=== PATIENT | female | born 1990 | race Caucasian/White ===

== ENCOUNTER 2017-07-13 11:07 | Day surgery (SDC) | payer BC ==
[2017-07-13 11:44] VITALS: BMI 26.1
[2017-07-13 11:51] VITALS: BP 127/75; TEMP 98.7
[2017-07-13 12:47] LABS: Amnisure Test No Membranes Rupture (No Rupture)
[2017-07-13] MEDS ORDERED: Cyclobenzaprine 10 MG TAB PO SCH (13:15)
[2017-07-13] MEDS ORDERED: Ondansetron HCl/PF 4 MG in Sodium Chloride 0.9% 50 ML IVPB PRN (13:53)
[2017-07-13] MEDS ORDERED: Ondansetron HCl/PF 4 MG/2 ML Vial ONE (13:53)
[2017-07-13] MEDS ORDERED: Lactated Ringer's 1,000 ML IV SCH (14:00)
[2017-07-13 14:42] LABS: Bilirubin Negative (Negative); Blood, Urine Negative (Negative); Glucose, Urine (Dipstick) Negative (Negative); Ketone, Urine Negative (Negative); Nitrite Negative (Negative); Protein, Urine (Dipstick) Negative (Neg-Trace); Urobilinogen 0.2 mg/dL (0.2-1.0)
[2017-07-13 14:48] LABS: Bacteria/HPF None Seen HPF (None Seen); Hyaline Casts/LPF 4-6 HYALINE CAST LPF (0-3 Hyaline); RBC/HPF 0-3 HPF (0-3); Squamous Epithelial 0-3 HPF (0-3); WBC/HPF 0-3 HPF (0-3)
--- NOTE | 2017-07-13 15:56 | PDOC.LDHP ---
Labor and Delivery H&P Chief complaint: other (multiple complaints) HPI: 26 y/o at 29w6d, patient of Dr. Dahl, present with multiple complaints. Had wetness in her underwear the last 3 days requiring her to change 2x per day. Also complaints of sharp vaginal pain with movement and low back pain. Pains radiate down to legs. Reports fever at home of 101 this morning but has been afebrile since. Denies headache, URI symptoms, diarrhea, UTI symptoms, or other concerns. She initially denied N/V but had an episode of emesis while in the room with dizziness. ROS neg for HEENT, cv, pulm, gi, gu, neuro, psych, skin, musculoskeletal, or constitutional symptoms other than mentioned above. OB History Details: 1 prior term LTCS. Baby has trisomy 21 and CHD. Past Medical History: History of seizures as child Current medications: pre-charlie vitamins Previous surgical history: low tranverse CS Allergies/Adverse Reactions: Allergies Allergy/AdvReac Type Severity Reaction Status Date / Time Iodine and Iodide Containing Allergy Verified 11/12/14 18:01 Produc shrimp Allergy Severe Anaphylaxis Uncoded 07/13/17 11:42 Social history: none - Physical Exam Vital signs reviewed and normal: yes General: NAD, resting Lungs: nonlabored breathing Abdomen: gravid Extremeties: no edema FHT: category 1 (135, mod variability, + accels, no decels) Morganza contractions every: none - Vaginal Exam cm dilated: 0 Effacement: 0% Station: -3 - OB Labs Additional Labs: Laboratory Tests 07/13/17 07/13/17 12:01 14:00 Urine Color YELLOW Urine Clarity CLEAR Urine pH 6.0 Ur Specific [place] 1.020 Urine Protein Negative Urine Glucose (UA) Negative Urine Ketones Negative Urine Blood Negative Urine Nitrite Negative Urine Bilirubin Negative Urine Urobilinogen 0.2 Ur Leukocyte Esterase Trace H Urine RBC 0-3 Urine WBC 0-3 Ur Squamous Epith Cells 0-3 Urine Bacteria None Seen Hyaline Casts 4-6 HYALINE CAST H Amnio Swab Test No Membranes Rupture - Assessment 26 y/o at 29w6d with no e/o SROM or labor. Likely normal musculoskeletal discomforts of and possible early gastroenteritis. status reassuring with reactive NST. - Plan -: Given 2L IV fluids, Zofran and feeling better. D/c home with precautions. Advised to keep follow up appointments and call Dr. Dahl's office with concerns.
== END 2017-07-13 15:45 | disposition home or self-care (01) ==
LOC: L&D/OP 11:07
PROVIDERS: ATTEND Obstetrics & Gynecology
DX: O99.89 Other specified diseases and conditions complicating pregnancy, childbirth and the puerperium (principal); R10.2 Pelvic and perineal pain; M54.5 Low back pain; Z3A.29 29 weeks gestation of pregnancy; Z79.899 Other long term (current) drug therapy; Z91.041 Radiographic dye allergy status; Z91.013 Allergy to seafood; Z98.890 Other specified postprocedural states; Z87.891 Personal history of nicotine dependence
CPT/HCPCS: 51701; 81001; 84112; 96360; 96361; 96375; 99284; J2405

== ENCOUNTER 2017-12-22 14:58 | Inpatient (IN) | payer BC ==
[2017-12-22] MEDS ORDERED: Morphine 4 MG/ML VIAL ONE ×2 (15:16→18:13)
[2017-12-22] MEDS ORDERED: Ondansetron ODT 4 MG TAB ONE ×2 (15:16→18:13)
[2017-12-22 15:38] LABS: #Lymphocytes 0.9 thou/uL (1.20-3.40); #Monocytes 0.9 thou/uL (0.11-0.59); #Neutrophils 4.5 thou/uL (1.40-6.50); %Basophils 0.5 % (0.0-1.0); %Eosinophils 0.7 % (0.0-10.0); %Lymphocytes 14.1 % (21.0-51.0); %Monocytes 13.3 % (0.0-10.0); %Neutrophils 71.3 % (42.0-75.0); Mean Corpuscular HGB CONC 33.9 g/dL (32.0-36.0); Mean Corpuscular Hemoglobin 31.3 pg (27.0-31.0); Mean Corpuscular Volume 92.3 fl (81.0-99.0); Mean Platelet Volume 7.4 fL (7.4-10.4); Platelet Count 218 thou/uL (130-400); RBC Distribution Width 11.3 % (11.5-14.5); Red Blood Cell (RBC) Count 4.46 mill/uL (4.20-5.40); White Blood Cell (WBC) Count 6.3 thou/uL (4.8-10.8)
[2017-12-22 15:48] LABS: BHCG - Serum Negative (NEGATIVE); Pregs Control Background? CLEAR/WHITE (CLR/WHITE); Pregs Control Bar Appear? YES (CONTROL BAR)
[2017-12-22 16:01] LABS: ALT (SGPT) 30 U/L (8-55); AST (SGOT) 20 U/L (5-34); Albumin 4.5 g/dL (3.5-5.0); Alkaline Phosphatase 78 U/L (40-150); Anion Gap 11 mmol/L (10-20); BUN (Urea Nitrogen) 14 mg/dL (7.0-18.7); Bilirubin, Total 0.4 mg/dL (0.2-1.2); Calc. Creatinine Clearance 0 mL/min (70-130); Calcium 9.7 mg/dL (7.8-10.44); Carbon Dioxide 26 mmol/L (22-29); Chloride 103 mmol/L (98-107); Estimated GFR-MDRD 79; Globulin 2.9 g/dL (2.4-3.5); Glucose 101 mg/dL (70-105); Potassium 4.1 mmol/L (3.5-5.1); Protein, Total 7.4 g/dL (6.0-8.3); Sodium 136 mmol/L (136-145)
[2017-12-22 16:06] LABS: Bilirubin Negative (Negative); Blood, Urine Negative (Negative); Clarity CLEAR (Clear); Glucose, Urine (Dipstick) Negative (Negative); Leukocyte Small (Negative); Nitrite Negative (Negative); Protein, Urine (Dipstick) Negative (Neg-Trace); Specific Gravity, Urine 1.017 (1.002-1.036); Urobilinogen 0.2 mg/dL (0.2-1.0)
[2017-12-22 16:19] LABS: Bacteria/HPF None Seen HPF (None Seen); Hyaline Casts/LPF 0-3 HYALINE CAST LPF (0-3 Hyaline); Pathc Cast-AUWi Flag 0.29 (0-2.49); RBC/HPF 0-3 HPF (0-3); WBC/HPF 0-3 HPF (0-3)
--- NOTE | 2017-12-22 16:31 | CT ---
CT ABDOMEN AND PELVIS WITHOUT IV CONTRAST: TECHNIQUE: Multiple axial tomograms obtained through the abdomen and pelvis without IV enhancement. INDICATION: Fever and abdominal pain. Pelvic pain. FINDINGS: Lung bases clear. Liver, spleen, and pancreas unremarkable for an unenhanced exam. Adrenal glands and kidneys unremark able. No hydronephrosis. The urinary bladder is partially distended. The uterus appears prominent. There is prominence of the right adnexa. There is a complex-appearing mass in the right adnexa measuring up to 3.5 cm. This is poorly defined on this exam. This may be a complex cystic lesion. Etiologies such as ectopic are not excluded. No significant free fluid in the pelvis. IMPRESSION: Limited exam due to lack of IV and oral contrast. Evidence of a complex mass in the right adnexa phoenix suring 3 to 3.5 cm. Recommend correlation with serum HCG to exclude ectopic . Suggest foll owup pelvic ultrasound or pelvic MRI for better characterization. POS: GRECIA
[2017-12-22 16:33] LABS: Transitional Epithelial 0-3 HPF (0-3)
[2017-12-22] MEDS ORDERED: Acetaminophen 500 MG TAB ONE (16:37)
--- NOTE | 2017-12-22 17:34 | ULT ---
PELVIC ULTRASOUND: 12/22/17 COMPARISON: CT abdomen/pelvis 12/22/17. HISTORY: Right sided pelvic mass seen on CT. TECHNIQUE: Multiplanar rodriguez scale and color doppler images were obtained in a transabdominal and transvaginal pe lvic ultrasound. Spectral analysis of the doppler waveforms of the ovaries were performed. FINDINGS: The uterus is normal in size and appearance without focal abnormality. The endometrial strip is hazel l in appearance measuring 4 mm. A small amount of free fluid is seen in the pelvis. Both ovaries are normal in size and appearance. N ormal flow is seen in the right ovary. Flow cannot be definitely seen in the left ovary secondary to patient mobility and shaking. No pelvic mass is identified. The abnormality seen on CT in the right a spect of the pelvis may represent the patient's right ovary. IMPRESSION: No significant pelvic abnormality. POS: IRENE
--- NOTE | 2017-12-22 17:38 | PDOC.EVN ---
Event Note - Event Note Event Note: ED OBGYN Consultation Time of eval: 7384-2533 Location ED 16 CC: fevers and lower right sided pain Patient seen in the ED with Dr Dahl at bedside. PLEASE SEE HANDWRITTEN CONSULT NOTE SCANNED IN CHART In brief, 27 yo patient (3mos) s/p CS 3 mos ago with progressive LAP , rt > left. Patient with Tmax 102.5. CT with unclear right lower quadrant "mass", sono with no distinct ovarian abnormality, no torsion. 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 I have requested Dr Whiting (correction officer supervisor) to asses the patient. I will defer primary care of the patient to Dr Whiting at this time. Plan d/w patient and her , and the ED BURRER MACHINE.
--- NOTE | 2017-12-22 17:46 | PDOC.EVN ---
Event Note - Event Note Event Note: @1742: Progress note follow up: Dr Thomas has evaluated the patinet. States CT reveals normal appendix per radiology. DX includes possible ruptured ovarian cyst vs other. We will admit for emperic Rocephin and Zmax for now and follow. Clears for now. Repeat CBC in AM
--- NOTE | 2017-12-22 17:53 | PDOC.EVN ---
Event Note - Event Note Event Note: HISTORY AND PHYSICAL @1755 OBYN Admission Plesae see other event notes for information. Scanned consult will function as H &P. HPI: In brief, this patient has had worsening pelvic pain for [address] with nonspecific changes to right adnexa. Sono with no disctinct pelvic mass or torsion. Gen Surgery has felt this is not appy related. Sxs include pain and fever. Tmax in ED was 102.5 with WBC of 6. CMP wnl Review of Systems: , last sex about one week ago..pain started around that time Surg Hx: CS 3 mos ago Allergies: Iodine/Wheat Social: negative for ETOH, tobacco, IVDA PHYSICAL: right abdominal/pelvic pain on deep palpation no vag dsch no vag bleed Assessment: please see other enries. Suspected pelvic infection, NOS Plan: Rocepin/Zmax repeat CBC and CMP in AM Follow for now LR hydration Clear diet
[2017-12-22] MEDS ORDERED: metroNIDAZOLE 500 MG in Premix Bag 1 BAG IVPB SCH (18:00)
[2017-12-22] MEDS ORDERED: Azithromycin 500 MG VIAL ONE (18:06)
[2017-12-22] MEDS ORDERED: cefTRIAXone\\ROCEPHIN 1 GM VIAL ONE (18:06)
--- NOTE | 2017-12-22 20:29 | PDOC.EVN ---
Event Note - Event Note Event Note: @2019: Patient now on 3SE patient seen Stable Temp now 98 Continue ABX Mainline LR as IVF
[2017-12-22] MEDS: Butorphanol Tartrate 1 MG/ML VIAL SLOW IVP PRN (20:47)
[2017-12-22] MEDS: Promethazine HCl 25 MG/ML VIAL IM/IV PRN (20:48)
--- NOTE | 2017-12-22 21:19 | PDOC.EVN ---
Event Note - Event Note Event Note: VP3 positive for BV. On Flagyl
--- NOTE | 2017-12-22 21:22 | HP ---
HISTORY OF PRESENT ILLNESS: This is a 27-year-old, 2, para 2, three months C-sect ion, Dr. Dahl. The patient states that 2 weeks ago, she began having lower back pain when she is r ocking her . This persisted over the next 2 weeks. During that time, she has not been able t o have sexual relations with her . She has had continued low back pain. For about a week, fabio butler experienced diarrhea and anorexia, but that resolved. Acute onset admitted morning, this morning, was low back pain and lower abdominal pain. She presented to the emergency room. She has an IODINE allergy, cannot tolerate SEAFOOD and IODINE prep on her scan causes edema. Thus, she underwent a non oral and non-IV contrast CAT scan of abdomen and pelvis revealed an adnexal mass, and ultrasound reve aled an adnexal mass with normal-appearing ovaries with flow. She had a fever this morning to 102 de grees, on arrival 100 degrees in the emergency room and later to 102.0 degrees. She has a normal whi te count. She had an appointment with Dr. Dahl to talk to him about her pain with intercourse and he sent her to the hospital, precipitating this evaluation. Dr. Mendez has seen the patient in evalua tion and felt initially that this was possibly appendicitis. I was asked to see her. Patient's history is not consistent with appendicitis. It is more consistent with adnexal gynecologi maritza problem. Personal review of the CAT scan with radiologist and with this suboptimal CAT scan (IOD INE allergy noncontrast oral and IV scan), the appendix is still visualized and appears to be normal. The imaging abnormality seen on both CAT scan and ultrasound is more consistent with an adnexal pro blem. I have discussed with Dr. Mendez, who will admit her for intravenous antibiotics. I do not think a ge neral surgical intervention is wanted at this time. I will certainly be available if laparoscopy is performed, but I think that the patient does not have appendicitis based on history and imaging. ALLERGIES: IODINE. TOBACCO: None. ALCOHOL: Rarely. MEDICATIONS: None. PAST SURGICAL HISTORY: C-sections. PAST MEDICAL HISTORY: Noncontributory. REVIEW OF SYSTEMS: Ten-point noncontributory. PHYSICAL EXAMINATION: VITAL SIGNS: Heart rate 80, blood pressure 120/74, respiratory rate 16, GENERAL: Patient is in mild discomfort. LUNGS: Clear to auscultation. CARDIAC: Regular rate and rhythm without murmur, rub, or gallop. ABDOMEN: Soft, tenderness with guarding in right lower quadrant. EXTREMITIES: Unremarkable. LABORATORY DATA: White count 6 and hemoglobin normal. Comprehensive metabolic profile normal. CAT scan and ultrasound as described. ASSESSMENT AND PLAN: Abdominal pain, probably of gynecological etiology, certainly not appendicitis. Treatment per Dr. Mendez. I will be available should laparoscopy be indicated for failed nonsurgica l treatment.
[2017-12-22] MEDS: Lactated Ringer's 1,000 ML IV SCH (21:42)
[2017-12-22] MEDS: metroNIDAZOLE 500 MG in Premix Bag 1 BAG IVPB SCH (22:18)
[2017-12-23 00:41] VITALS: BMI 28.1
[2017-12-23] MEDS: cefTRIAXone\\ROCEPHIN 1 GM in Sodium Chloride 0.9% 100 ML IVPB SCH ×2 (00:45→18:28)
[2017-12-23] MEDS: Ibuprofen 600 MG TAB PO PRN ×3 (02:42→14:20)
--- NOTE | 2017-12-23 04:03 | PDOC.EVN ---
Event Note - Event Note Event Note: HD2 (admitted 12/23/17) Called at 0300 (as I was entering a CS) for temp 102. Patient seen by me at bedside at 0400 S. States still with some abnominal pain and headache. No vag bleed, no real nuasea O. Tmax 102. GC/Chl pending AM labs pending Meds: Rocephin and Flagyl IV (Zmax in ED) Physical: Patient in NAD buy looks uncomfrtable Abd soft but tender to deep palpation No rebound No Guarding Assessment: PID by exam criteria, 3 mos Post CS. Gen Surg does not feel appy likley based on CT Plan: 1. continue LR 2. Motrin prn 3. IV antibiotics 4. Check AM Run labs
[2017-12-23] MEDS: metroNIDAZOLE 500 MG in Premix Bag 1 BAG IVPB SCH ×4 (04:06→22:42)
[2017-12-23] MEDS: Lactated Ringer's 1,000 ML IV SCH ×3 (05:02→22:44)
[2017-12-23 05:49] LABS: ALT (SGPT) 22 U/L (8-55); AST (SGOT) 16 U/L (5-34); Albumin 3.6 g/dL (3.5-5.0); Alkaline Phosphatase 61 U/L (40-150); Anion Gap 12 mmol/L (10-20); BUN (Urea Nitrogen) 10 mg/dL (7.0-18.7); Bilirubin, Total 0.6 mg/dL (0.2-1.2); Calc. Creatinine Clearance 140 mL/min (70-130); Calcium 8.5 mg/dL (7.8-10.44); Carbon Dioxide 22 mmol/L (22-29); Chloride 108 mmol/L (98-107); Estimated GFR-MDRD 85; Globulin 2.3 g/dL (2.4-3.5); Glucose 92 mg/dL (70-105); Potassium 3.7 mmol/L (3.5-5.1); Protein, Total 5.9 g/dL (6.0-8.3); Sodium 138 mmol/L (136-145)
[2017-12-23 06:27] LABS: Band 9 % (5-11); Hemoglobin 12.5 g/dL (12.0-16.0); Lymphocytes 23 % (21-51); MDiff Complete? YES; Mean Corpuscular HGB CONC 34.2 g/dL (32.0-36.0); Mean Corpuscular Hemoglobin 31.7 pg (27.0-31.0); Mean Corpuscular Volume 92.6 fl (81.0-99.0); Mean Platelet Volume 7.1 fL (7.4-10.4); Monocytes 6 % (0-10); Neutrophil 62 % (42-75); PLT Morphology Comment Appears Adequate; Platelet Count 179 thou/uL (130-400); RBC Distribution Width 11.3 % (11.5-14.5); Red Blood Cell (RBC) Count 3.93 mill/uL (4.20-5.40); White Blood Cell (WBC) Count 6.6 thou/uL (4.8-10.8)
--- NOTE | 2017-12-23 06:52 | PDOC.EVN ---
Event Note - Event Note Event Note: Lab check: WBC this am stable at 6.6 Hct 36 from 41 likely s/p IVF hydration. Cr 0.81 from 0.87 Temp current 99 GC/Chl and cultures still pending
[2017-12-23] MEDS ORDERED: Acetaminophen/Codeine 30-300mg Tablet PO PRN (11:59)
--- NOTE | 2017-12-23 11:59 | PDOC.EVN ---
Event Note - Event Note Event Note: Call from floor. Pt. hungry, requesting regular diet. Currently AF. Prelim BC are negative. Plan: Diet ordered, Tylenol #3 fpr pain. Cont. ABX.
[2017-12-23] MEDS: Acetaminophen/Codeine 30-300mg Tablet PO PRN ×2 (12:22→15:52)
[2017-12-23] MEDS: Butorphanol Tartrate 1 MG/ML VIAL SLOW IVP PRN ×2 (18:23→22:42)
[2017-12-24] MEDS: Acetaminophen/Codeine 30-300mg Tablet PO PRN ×5 (02:23→22:41)
[2017-12-24] MEDS: Promethazine HCl 25 MG/ML VIAL IM/IV PRN (03:31)
[2017-12-24] MEDS: metroNIDAZOLE 500 MG in Premix Bag 1 BAG IVPB SCH ×4 (03:31→21:14)
--- NOTE | 2017-12-24 06:06 | PDOC.EVN ---
Event Note - Event Note Event Note: Emesis x 2 this AM. VSS AF. BP= 118/60 P=75 R= 20 T now= 99.7. Abdomen isoft, nondistended but reports diffuse tenderness throughout. BC and UC all negative so far. Plan; Cont. Rocephin and Flagyl, back to clear liquids. CBC ordered Will d/w Dr. Mendez this AM.
[2017-12-24 06:20] LABS: #Lymphocytes 1.4 thou/uL (1.20-3.40); #Monocytes 0.9 thou/uL (0.11-0.59); #Neutrophils 4.7 thou/uL (1.40-6.50); %Basophils 0.2 % (0.0-1.0); %Eosinophils 0.6 % (0.0-10.0); %Monocytes 12.6 % (0.0-10.0); %Neutrophils 66.6 % (42.0-75.0); Hemoglobin 12.4 g/dL (12.0-16.0); Mean Corpuscular HGB CONC 33.5 g/dL (32.0-36.0); Mean Corpuscular Hemoglobin 31.1 pg (27.0-31.0); Mean Corpuscular Volume 92.9 fl (81.0-99.0); Mean Platelet Volume 7.1 fL (7.4-10.4); Platelet Count 173 thou/uL (130-400); RBC Distribution Width 11.2 % (11.5-14.5); White Blood Cell (WBC) Count 7.1 thou/uL (4.8-10.8)
--- NOTE | 2017-12-24 08:55 | PDOC.EVN ---
Event Note - Event Note Event Note: OBGYN: Admitted on 12/22 HD 2 going to 3 ABX: Rocephin/Flagyl (one dose Zmax in ED) S. Nausea and vomiting early AM Tmax 99.7 Pulse 70-90s BPs stable Exam per Dr Chacon prior to my arrival: abd benign A/P: PID NOS: GC/chl PCR pending but low risk by HX Blood CX neg to date Urine CX was neg to juliette WBCs stable at 7 (normal) No localizaing issues..ok to continue med care for now.. ABX started 12/22 PM, so tonight will be only 48 HRS of ABX therapy
[2017-12-24] MEDS ORDERED: Sodium Chloride 0.9% 10 ML ONE (09:38)
[2017-12-24] MEDS: Lactated Ringer's 1,000 ML IV SCH ×3 (10:09→15:49)
--- NOTE | 2017-12-24 15:14 | PDOC.EVN ---
Event Note - Event Note Event Note: Afternoon vitals check: Afebrile. Gc/Chl still pending. Possible dsch home tomorrow with oral doxy and flagyl
--- NOTE | 2017-12-24 16:49 | PDOC.EVN ---
Event Note - Event Note Event Note: PM Note: @1647 I was asked by the patient's nurse to answer a few questions from the patient. As I am in L&D with another admission, I just completed a phone call with the patient. She requested a regular diet, which I had just ordered prior to her call. I discussed with her that discharge tomorrow is possible if repeat CBC remains normal this PM. Likely home on oral doxy and flagyl.
[2017-12-24] MEDS: cefTRIAXone\\ROCEPHIN 1 GM in Sodium Chloride 0.9% 100 ML IVPB SCH (18:15)
[2017-12-24 20:15] LABS: #Eosinphils 0.1 thou/uL (0.0-0.7); #Lymphocytes 2.1 thou/uL (1.20-3.40); #Monocytes 0.6 thou/uL (0.11-0.59); #Neutrophils 2.4 thou/uL (1.40-6.50); %Basophils 0.9 % (0.0-1.0); %Eosinophils 1.1 % (0.0-10.0); %Lymphocytes 40.5 % (21.0-51.0); %Monocytes 11.2 % (0.0-10.0); %Neutrophils 46.3 % (42.0-75.0); Hemoglobin 12.6 g/dL (12.0-16.0); Mean Corpuscular HGB CONC 34.3 g/dL (32.0-36.0); Mean Corpuscular Hemoglobin 31.9 pg (27.0-31.0); Mean Platelet Volume 7.1 fL (7.4-10.4); Platelet Count 178 thou/uL (130-400); RBC Distribution Width 11.3 % (11.5-14.5); Red Blood Cell (RBC) Count 3.95 mill/uL (4.20-5.40); White Blood Cell (WBC) Count 5.3 thou/uL (4.8-10.8)
[2017-12-25] MEDS: Lactated Ringer's 1,000 ML IV SCH (03:33)
[2017-12-25] MEDS: metroNIDAZOLE 500 MG in Premix Bag 1 BAG IVPB SCH (03:33)
--- NOTE | 2017-12-25 05:06 | PDOC.EVN ---
Event Note - Event Note Event Note: DISCHARGE NOTE: Admit date: 12/22/17 Discharge date: 12/25/17 DX: Pelvic Infection NOS 3 mos Course: In brief, this patient was first evaluated by me and Dr yancey in the ED. The working DX was PID based on physical exam findings. She was, however, low risk for STIs. CT scan revealed possible inflammatory changes at right lower quadrant , but sono showed no distict mass, no TOA, no torsion. genberal surgery felt this was not compatible with appy. WBC was normal at admit and thought stay. She was started on Rocephin and doxy after 1 gram oral zmax in the ED. She clinically improved and tolerated reg diet by dsch. Abd was soft. GC/Chl was collected but results pending. Blood and urine cultures were negative. Home with oral flagyl 500mg po BID x 5 days F/u one week with BVWC. Olivia seen by me on 12/25/17 AM and cleared for [facility] at 0500.
[2017-12-25 08:08] VITALS: BP 108/70; TEMP 97.8
[2017-12-26 19:38] LABS: Chlamydia by PCR Not Detected (NotDetected); GC by PCR Not Detected (NotDetected)
== END 2017-12-25 08:04 | disposition home or self-care (01) | DRG 392 ==
LOC: ERS 14:58 → OBSVTOIN 19:50 → 3SW 19:50
PROVIDERS: ADMIT Obstetrics & Gynecology; ATTEND Obstetrics & Gynecology
DX: R10.30 Lower abdominal pain, unspecified (principal); M54.5 Low back pain; N94.9 Unspecified condition associated with female genital organs and menstrual cycle
CPT/HCPCS: 36415; 74176; 76856; 80053; 81003; 81015; 83605; 84703; 85025; 86140; 86141; 87040; 87086; 87480; 87491; 87510; 87591; 87660; 96361; 96365; 96367; 96375; 96376; A4216; J0456; J0595; J0696; J2270; J2550; J7050; Q0162

== ENCOUNTER 2019-03-29 12:05 | Day surgery (SDC) | payer BC ==
[2019-03-29 13:03] VITALS: BMI 29.0
[2019-03-29 13:09] LABS: Amnisure Test No Membranes Rupture (No Rupture)
[2019-03-29 13:10] LABS: Amnisure Internal Control QC ACCEPTABLE (ACCEPTABLE)
--- NOTE | 2019-03-29 14:25 | ULT ---
ULTRASOUND OBSTETRICAL LIMITED: DATE: 03/29/19 HISTORY: 28-year-old female in third trimester of , presents with leakage of amniotic fluid and mild vaginal bleeding (spotting). FINDINGS: number: Forman. lie: Cephalic. Maternal cervix: 4 cm in length and closed. Placenta: Anterior. No placenta previa or abruptio placentae. Amniotic fluid volume: HEMANTH 15.5 cm. heart rate: 136 bpm. anatomy not evaluated. biometry not measured. IMPRESSION: 1. Live third trimester intrauterine gestation. 2. HEMANTH 15.5 cm. 3. Cephalic lie. 4. No placenta previa. JANETTE Dumont POS: BEL
--- NOTE | 2019-03-30 08:19 | SS ---
DATE OF ADMISSION: 03/29/2019 DATE OF DISCHARGE: 03/29/2019 REGULAR PHYSICIAN: Kar Dahl MD EVALUATING PHYSICIAN: Ricci Nolen MD CHIEF COMPLAINT: Leakage of fluid at home, spotting. HISTORY OF PRESENT ILLNESS: Ms. Falcon is a 28-year-old white G3, P2-0-02 with an estimated date of confinement of 06/06/2019, who presents complaining of a small amount of vaginal spotting along with which she believes is leakage of fluid since early this morning. She denies decreased movement or uterine contractions. Her care has been with Dr. Dahl and has been without complications. She is scheduled for repeat later in her . PAST OBSTETRICAL HISTORY: She has had 2 previous C-sections. The first one was for complications of Down syndrome followed by a second one due to what she describes as a baby with a narrow aortic arch and issues related to that. PAST MEDICAL HISTORY: None. PAST SURGICAL HISTORY: x2. CURRENT MEDICATIONS: vitamins and p.r.n. Tylenol. ALLERGIES: IODINE, WHICH GIVES HER A RASH. SOCIAL HISTORY: Denies tobacco, alcohol, or drug use. FAMILY HISTORY: Unremarkable. REVIEW OF SYSTEMS: Denies nausea, vomiting, fever, chills, vaginal bleeding, or decreased movement. PHYSICAL EXAMINATION: VITAL SIGNS: In triage, her vital signs are stable and she is afebrile. ABDOMEN: Soft, nontender, and gravid. heart rate tracing is stable with no decelerations. Occasional dropped beats are heard consistent with a arrhythmia. Sterile speculum exam shows a closed cervix with white vaginal discharge. No fluid seen. AmniSure returns negative. Ultrasound shows a cephalic fetus with an HEMANTH of 15. 4 Chamber view of the heart is normal. No evidence of placenta previa is seen. VP3 testing returns consistent with bacterial vaginosis. ASSESSMENT: 1. Thirty-week intrauterine . 2. Two previous sections. 3. No evidence of ruptured membranes. 4. Bacterial vaginosis. 5. arrhythmia. PLAN: The patient will be dismissed to home with prescription for Flagyl 250 mg one p.o. t.i.d. for a week. The mild arrhythmia was discussed with her and I have left a word with Dr. Alcantar at [facility] regarding this finding. She voiced understanding of her discharge instructions and was sent home in good condition. Job ID: [id number] MTDD
== END 2019-03-29 15:15 | disposition home or self-care (01) ==
LOC: L&D/OP 12:05
PROVIDERS: ATTEND Obstetrics & Gynecology
DX: O26.853 Spotting complicating pregnancy, third trimester (principal); O23.593 Infection of other part of genital tract in pregnancy, third trimester; B96.89 Other specified bacterial agents as the cause of diseases classified elsewhere; Z3A.30 30 weeks gestation of pregnancy
CPT/HCPCS: 76815; 84112; 87480; 87510; 87660; 99283

== ENCOUNTER 2019-05-11 11:22 | Day surgery (SDC) | payer BC ==
[2019-05-11 12:10] VITALS: BMI 30.7
[2019-05-11 12:41] LABS: Amnisure Internal Control QC ACCEPTABLE (ACCEPTABLE); Amnisure Test No Membranes Rupture (No Rupture)
[2019-05-11] MEDS ORDERED: hydrALAZINE 20 MG/ML VIAL SLOW IVP PRN (13:04)
== END 2019-05-11 13:13 | disposition home or self-care (01) ==
LOC: L&D/OP 11:22
PROVIDERS: ATTEND Obstetrics & Gynecology
DX: O99.89 Other specified diseases and conditions complicating pregnancy, childbirth and the puerperium (principal); N89.8 Other specified noninflammatory disorders of vagina
CPT/HCPCS: 84112

== ENCOUNTER 2019-05-30 05:23 | Inpatient (IN) | payer BC ==
--- NOTE | 2019-05-29 16:19 | HP ---
REASON FOR ADMISSION: Repeat at term. HISTORY OF PRESENT ILLNESS: Ms. Falcon is a 28-year-old, G3, P2, at 39 weeks and 1 day with JOSIANE of 06/06/2019. She presents for repeat at term. 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 Blood type B positive, antibody negative. Pap negative, rubella immune. VDRL nonreactive. Hepatitis B, GC, chlamydia negative. Group B strep negative. PAST MEDICAL HISTORY: Anxiety and anemia. PAST SURGICAL HISTORY: C-sections. ALLERGIES: IODINE. MEDICATIONS: vitamins. SOCIAL HISTORY: Denies tobacco, alcohol, or IV drug use. FAMILY HISTORY: Noncontributory. REVIEW OF SYSTEMS: Noncontributory. PHYSICAL EXAMINATION: GENERAL: White female, gravid consistent with 9 months' gestation. VITAL SIGNS: Blood pressure 120/78, pulse 85, and respirations 18. Weight 211. HEENT: Within normal limits. LUNGS: Clear to auscultation bilaterally. HEART: Regular rate and rhythm. ABDOMEN: Soft and nontender. Fundal height 38 cm. Estimated weight 7.5 pounds. FHTs 140s, full, without lesions. Vagina, without discharge. Cervix closed long and high. EXTREMITIES: No clubbing, cyanosis, or edema. IMPRESSION: Term gestation at 39 weeks' gestation by good criteria with first trimester ultrasound for repeat section. PLAN: We will have DVT prophylaxis and proceed with repeat section at term. Job ID: [id number]
[2019-05-30 06:21] VITALS: BMI 31.0
[2019-05-30 06:33] LABS: Mean Corpuscular HGB CONC 34.1 g/dL (32.0-36.0); Mean Corpuscular Hemoglobin 30.3 pg (27.0-31.0); Mean Corpuscular Volume 88.9 fL (78.0-98.0); Mean Platelet Volume 8.7 fL (7.4-10.4); Platelet Count 210 thou/uL (130-400); RBC Distribution Width 12.7 % (11.5-14.5); Red Blood Cell (RBC) Count 3.96 mill/uL (4.20-5.40); White Blood Cell (WBC) Count 8.9 thou/uL (4.8-10.8)
[2019-05-30] MEDS ORDERED: FLU VACC QS2019-20(6MOS UP)/PF 60 MCG/0.5 ML SYRINGE IM ONE (06:45)
[2019-05-30] MEDS ORDERED: MORPHINE 5 MG/10 ML PF VIAL ONE (07:01)
[2019-05-30] MEDS ORDERED: Fentanyl 100 MCG/2 ML VIAL ONE (07:01)
[2019-05-30] MEDS ORDERED: Metoclopramide HCl 10 MG/2 ML VIAL ONE ×2 (07:02→12:46)
[2019-05-30] MEDS ORDERED: ePHEDrine/0.9% NaCl/PF SYRINGE 50 mg/10 ml ONE (07:02)
[2019-05-30] MEDS ORDERED: Oxytocin 10 UNITS/ML VIAL ONE ×2 (07:02→07:54)
[2019-05-30] MEDS ORDERED: Ondansetron PF 4 MG/2 ML Vial ONE ×2 (07:02→12:46)
[2019-05-30] MEDS ORDERED: Bicitra 30 ML UDCUP ONE (07:08)
[2019-05-30 07:17] LABS: HBSAg Index 0.19 S/CO (0-0.99); Hep B Surf Ag Non-Reactive S/CO (NonReactive)
[2019-05-30 07:21] LABS: Syphilis Antibody Nonreactive (Nonreactive); Syphilis Antibody Index 0.06 S/CO (<1.00 Non-Reactive)
[2019-05-30] MEDS ORDERED: hydrALAZINE 20 MG/ML VIAL SLOW IVP PRN ×2 (07:28→10:47)
[2019-05-30] MEDS ORDERED: Promethazine HCl 25 MG/ML VIAL IM PRN ×2 (07:28→08:11)
[2019-05-30] MEDS ORDERED: Ondansetron PF 4 MG/2 ML Vial IVP PRN ×3 (07:28→10:47)
[2019-05-30] MEDS ORDERED: Lactated Ringer's 1,000 ML IV SCH ×2 (07:30)
[2019-05-30] MEDS ORDERED: Bicitra 30 ML UDCUP PO SCH (07:30)
[2019-05-30] MEDS ORDERED: CEFAZOLIN 2 GM in Premix Bag 1 BAG IVPB SCH (07:30)
[2019-05-30] MEDS ORDERED: Meperidine HCl/PF 25 MG/ML VIAL SLOW IVP PRN (08:11)
[2019-05-30] MEDS ORDERED: Promethazine HCl 25 MG SUPP PR PRN (08:11)
[2019-05-30] MEDS ORDERED: Naloxone HCl 0.4 mg/ml Vial IVP PRN ×2 (08:11)
[2019-05-30] MEDS ORDERED: HYDROmorphone 2 MG/ML VIAL SLOW IVP PRN (08:11)
[2019-05-30] MEDS ORDERED: Ondansetron HCl/PF 4 MG/2 ML Vial IVP PRN (08:11)
[2019-05-30] MEDS ORDERED: L&D-Morphine 4 MG/ML VIAL SLOW IVP PRN (08:11)
[2019-05-30] MEDS ORDERED: diphenhydrAMINE 50 MG/ML VIAL IVP PRN (08:11)
[2019-05-30] MEDS ORDERED: Naloxone HCl 0.4 mg/ml Vial IV PRN (08:11)
[2019-05-30] MEDS ORDERED: Ketorolac Tromethamine 30 MG/ML VIAL IVP SCH (08:15)
[2019-05-30] MEDS ORDERED: Communication Order-Pharmacy FS SCH (08:15)
[2019-05-30] MEDS ORDERED: Ketorolac Tromethamine 30 MG/ML VIAL ONE (09:32)
[2019-05-30] MEDS: Ketorolac Tromethamine 30 MG/ML VIAL IVP PRN ×3 (09:41→21:45)
[2019-05-30] MEDS ORDERED: Lanolin Ointment 7 GM TUBE TOP PRN (10:47)
[2019-05-30] MEDS ORDERED: Adacel (T-DAP) 0.5 ML SYRINGE IM ONE (10:47)
[2019-05-30] MEDS ORDERED: diphenhydrAMINE 25 MG CAP PO PRN (10:47)
[2019-05-30] MEDS ORDERED: Zolpidem Tartrate 5 MG TAB PO PRN (10:47)
[2019-05-30] MEDS ORDERED: Acetaminophen 325 MG TAB PO PRN (10:47)
--- NOTE | 2019-05-30 11:03 | OP ---
DATE OF PROCEDURE: 05/30/2019 PREOPERATIVE DIAGNOSES: Term , prior section x2. POSTOPERATIVE DIAGNOSES: Term , prior section x2. PROCEDURE PERFORMED: Repeat low-transverse section without extension. LOCK TECHNICIAN: Jacqueline Odell PA-C ANESTHESIA: Subarachnoid block. Annetta Perez M.D. ESTIMATED BLOOD LOSS: 500 mL. DRAINS: Rebollar to gravity. MEDICATIONS: 2 g Ancef preincision. DVT PROPHYLAXIS: SCDs. OPERATIVE FINDINGS: 1. Vigorous male , cephalic presentation, Apgars and weight pending. 2. Normal-appearing uterus, tubes, and ovaries. 3. Hemostasis, clear urine at the end of the procedure. DISPOSITION: Recovery room in good condition. DESCRIPTION OF PROCEDURE: After obtaining appropriate informed consent, the patient was taken to the operating room. Subarachnoid block was achieved without difficulty. The patient was prepped and draped in the usual manner. Previous Pfannenstiel incision was identified, incised sharply, carried down to the fascia in the midline, incised sharply superiorly and laterally with curved Topete scissors. Rectus was dissected off sharply superiorly and inferiorly, divided in the midline. Peritoneum entered bluntly to avoid trauma to the underlying viscera. Jitendra O retractor placed inside. The lower uterine segment easily identified and vesicouterine peritoneal fold noted to be below the level of the hysterotomy that would need to be made. A low-transverse hysterotomy was made and extended superiorly and laterally with finger fractionization. 's head elevated to hysterotomy. The rest of the infant delivered. Cord clamped and handed off to the nursery in attendance. Usual cord blood sample was obtained. Placenta removed manually. Uterus inspected and noted to be without extension and left in the abdominal cavity. Hysterotomy was closed using a running continuous #1 Monocryl suture x1 in a single layer technique. Good hemostasis was noted. The gutters were irrigated out, and reinspection of hysterotomy revealed it to be dry. The Jitendra O retractor was removed, and counts were correct x1. The rectus was inspected and noted to be dry. The fascia reapproximated using running continuous 0 PDS suture x1. Subcutaneous tissue was irrigated, rendered hemostatic with Bovie cautery and reapproximated using a 2-0 plain gut in the deep subcu and a subcuticular 4-0 Monocryl with Dermabond. The patient was taken to the recovery room in good condition. Job ID: [id number]
[2019-05-30] MEDS ORDERED: Acetaminophen 1,000 MG in Premix Bag 1 BAG IVPB SCH (12:30)
[2019-05-30] MEDS: Simethicone Chewable 80 MG TAB PO PRN (21:45)
[2019-05-30] MEDS: Docusate Calcium (SURFAK) 240 MG CAP PO SCH (21:48)
[2019-05-31] MEDS ORDERED: Sodium Chloride 0.9% 10 ML ONE (03:48)
[2019-05-31] MEDS: Simethicone Chewable 80 MG TAB PO PRN ×2 (03:54→08:13)
[2019-05-31] MEDS: Ketorolac Tromethamine 30 MG/ML VIAL IVP PRN (03:54)
[2019-05-31 05:58] LABS: Hemoglobin 11.2 g/dL (12.0-16.0); Mean Corpuscular Hemoglobin 30.7 pg (27.0-31.0); Mean Corpuscular Volume 90.3 fL (78.0-98.0); Mean Platelet Volume 8.9 fL (7.4-10.4); Platelet Count 169 thou/uL (130-400); RBC Distribution Width 12.9 % (11.5-14.5); Red Blood Cell (RBC) Count 3.66 mill/uL (4.20-5.40); White Blood Cell (WBC) Count 10.8 thou/uL (4.8-10.8)
[2019-05-31] MEDS: HYDROcodone/Acetaminophen 5/325 mg Tablet PO PRN ×3 (08:13→19:49)
[2019-05-31] MEDS: Docusate Calcium (SURFAK) 240 MG CAP PO SCH ×2 (08:22→21:31)
[2019-05-31] MEDS: Prenatal Vitamin 1 TAB PO SCH (08:22)
[2019-05-31] MEDS: Ibuprofen 800 MG TAB PO SCH ×2 (12:25→21:31)
[2019-05-31] MEDS ORDERED: Bisacodyl 10 MG SUPP PR PRN (15:25)
[2019-06-01] MEDS: HYDROcodone/Acetaminophen 5/325 mg Tablet PO PRN ×3 (03:28→13:05)
[2019-06-01] MEDS: Ibuprofen 800 MG TAB PO SCH ×2 (06:08→13:05)
[2019-06-01 08:08] VITALS: BP 124/68; TEMP 97.7
[2019-06-01] MEDS: Docusate Calcium (SURFAK) 240 MG CAP PO SCH (09:07)
[2019-06-01] MEDS: Prenatal Vitamin 1 TAB PO SCH (09:07)
== END 2019-06-01 17:05 | disposition home or self-care (01) | DRG 788 ==
LOC: L&D 05:23 → 3SW 10:59
PROVIDERS: ADMIT Obstetrics & Gynecology; ATTEND Obstetrics & Gynecology
PROC: 10D00Z1 Extraction of Products of Conception, Low, Open Approach (ICD-10-PCS; principal; 2019-05-30)
DX: O34.211 Maternal care for low transverse scar from previous cesarean delivery (principal); Z3A.39 39 weeks gestation of pregnancy; Z37.0 Single live birth; O99.344 Other mental disorders complicating childbirth; O99.02 Anemia complicating childbirth; F41.9 Anxiety disorder, unspecified
CPT/HCPCS: 36415; 51702; 85027; 86780; 86850; 86900; 86901; 87340; J0131; J0690; J1885; J2274; J2405; J2590; J2765; J3010